=== PATIENT | female | born 1995 | race Caucasian/White ===

== ENCOUNTER 2017-04-29 13:44 | Emergency (ER) | payer BC ==
[~2017-04-29] VITALS: Ht 167.6 cm; Wt 69.2 kg
[2017-04-29 13:51] VITALS: TEMP 36.9; Ht 167.6 cm; Wt 69.2 kg
[2017-04-29] MEDS ORDERED: XYLOCAINE 1%/SOD BICARB 20 ML VIAL INFIL ONE (14:31)
--- NOTE | 2017-04-29 15:48 | EMERGENCY ROOM VISIT NOTE ---
History Report prepared by Reuben: Mago Browning Under the Supervision of: Dr. [place] M.D. First contact with patient: 14:04 Chief Complaint: OTHER COMPLAINT Stated Complaint: CYST ON VAGINAL OPENING History of Present Illness The patient is a 22 year old female who presents to the Emergency Room with complaints of a worsening vaginal cyst beginning three days ago. She states that she has been having problems with a Bartholin cyst for five months. The patient states that her first cyst required draining and packing. She notes that the packing fell out the following day. The patient states that last night she did not feel well and was experiencing chills. She states that she experiences pain "while wiping". The patient denies any pain during urination or bowel movements. Source of History: patient Onset: 3 days ago Position: other (vagina) Quality: other (cyst) Timing: worsening Associated Symptoms: + chills, No urinary symptoms (pain with urination) Review of Systems All systems have been listed, reviewed, and are negative other than those previously mentioned. Please see Additional Medical History Sheet. Past Medical & Surgical Medical Problems: (1) No Known Active Medical Problems Family History Diabetes mellitus Social History Smoking Status: Never Smoker Housing Status: lives alone Occupation Status: [employer] student Current/Historical Medications No Active Prescriptions or Reported Meds Allergies Coded Allergies: No Known Allergies (Unverified , 04/29/17) Physical Exam Vital Signs Date Time Temp Pulse Resp B/P (MAP) Pulse Ox O2 Delivery O2 Flow Rate FiO2 04/29/17 16:22 85 18 112/67 98 04/29/17 13:51 36.9 84 18 124/86 99 Room Air Physical Exam GENERAL: Patient awake, alert, oriented x 3. No significant distress. Patient follows commands. Patient does not appear toxic. Patient is adequately hydrated and well-nourished. SKIN: No erythema, pallor, cyanosis or rash HEENT: Normal head, pupils equal, reactive to light and accommodation. LUNGS: Clear to auscultation. No wheezes, no rales, no rhonchi. HEART: No murmurs. No gallops. No rubs ABDOMEN: No masses, no rebound, no hepatomegaly or splenomegaly. : Fist-sized left Bartholin cyst. Markedly tender to palpation. Induration noted. EXTREMITIES: No signs of trauma. No pedal or pretibial edema. No calf or thigh tenderness. NEUROLOGIC: Cranial nerves II-XII within normal limits. No gross motor sensory function deficits. Medical Decision & Procedures Procedure Incision & Drainage Indication: Abscess. Location: left labia minora Verbal consent was obtained The skin was prepped with dilute betadine and a sterile field set. The wound was anesthetized with 3 ml of 1% lidocaine without epinephrine. The abscess cavity was entered with a number 11 blade and purulent , foul smelling pus was expressed. Copious irrigation was performed using normal saline. The area was opened further with a pair of needle drivers. A word catheter was inserted and inflated with 7 ml of air. The wound was explored for foreign bodies and none found. No complications and the patient tolerated the procedure well. ED Course 1404: Past medical records reviewed. The patient was evaluated in room B8. A complete history and physical examination was performed. 1431: Lidocaine HCI 20 ml INFIL. 1440: I conducted the incision and drainage. See the procedure note for details. 1550:Upon reevaluation, the patient appeared to have improvement of her symptoms. I discussed today's findings with her. She verbalized agreement of the treatment plan. The patient was discharged home. Medical Decision Nurses notes reviewed. Medical history sheet reviewed. Differential diagnosis includes but is not limited to: Bartholin's cyst, cellulitis. The patient arrived with a large left Bartholin's cyst which was anesthetized and I & Ded. A large amount of pus was released. It was further bluntly opened and irrigated with normal saline. The patient tolerated the procedure well. Culture was obtained. The patient is currently on Keflex which she will continue. The patient has been taking Aleve for pain management. The patient will need to have the Word catheter removed in approximately 3-4 days. She will continue sitz baths at home. Impression Primary Impression: Bartholin's cyst Scribe Attestation The scribe's documentation has been prepared under my direction and personally reviewed by me in its entirety. I confirm that the note above accurately reflects all work, treatment, procedures, and medical decision making performed by me. Departure Information Dispostion Home / Self-Care Prescriptions No Active Prescriptions or Reported Meds Referrals No Doctor, Assigned (PCP) Patient Instructions [facility] Additional Instructions Continue Keflex 4 times a day. One Aleve every 8 hours as needed for pain. Use a sitz bath 3-4 times a day for the next 3 days. Follow-up with a chemical reclamation equipment operator within the next 3-4 days. If you are unable to get into see a chemical reclamation equipment operator return to the ED.
[2017-04-29 16:22] VITALS: BP 112/67; PULSE 85; O2SAT 98
== END 2017-04-29 16:24 | disposition home or self-care (01) ==
LOC: C.EDB 13:45
DX: N75.0 Cyst of Bartholin's gland (principal); Z83.3 Family history of diabetes mellitus

== ENCOUNTER 2017-11-10 22:23 | Emergency (ER) | payer BC ==
[~2017-11-10] VITALS: Ht 167.6 cm; Wt 70.7 kg
[~2017-11-10 22:23] MED LIST: HYDR-5688 PO
[2017-11-10 22:34] VITALS: BP 136/93; PULSE 61; TEMP 37; O2SAT 96; Ht 167.6 cm; Wt 70.7 kg
--- NOTE | 2017-11-10 23:32 | EMERGENCY ROOM VISIT NOTE ---
History First contact with patient: 23:16 Chief Complaint: SORETHROAT Stated Complaint: SORE THROAT,COUGH History of Present Illness The patient is a 22 year old female who presents to the Emergency Room with complaints of a sore throat. The patient states that she developed a sore throat yesterday. She reports she additionally had a fever, headache and body aches but these symptoms have resolved. She has had a sore throat since then. She rates the discomfort a 4/10 and states it is worse with swallowing. She is taking qdoe-afn-zegacwe cold medicine for her symptoms. She does report that a coworker recently called off with strep throat. She denies difficulty swallowing, neck pain, cough or shortness of breath. Review of Systems A complete 10 point review of systems was reviewed with the patient with pertinent positives and negatives as per history of present illness. All else were negative. Past Medical/Surgical History Medical Problems: (1) No Known Active Medical Problems Family History Diabetes mellitus Social History Smoking Status: Never Smoker Housing Status: lives alone Occupation Status: [employer] student Current/Historical Medications Scheduled PRN Hydrocodone/Acetaminophen 5MG/325MG ([place] 5MG/325MG), 1 TABLET PO Q6H PRN for Pain Physical Exam Vital Signs Date Time Temp Pulse Resp B/P (MAP) Pulse Ox O2 Delivery O2 Flow Rate FiO2 11/10/17 22:34 37.0 61 18 136/93 96 Room Air 11/10/17 22:32 99 Room Air Physical Exam VITALS: Vitals are noted on the nurse's note and reviewed by myself. Vital signs stable. GENERAL: This is a 22-year-old female, in no acute distress, nondiaphoretic, well-developed well-nourished. SKIN: The skin was without rashes. EARS: External auditory canals clear, tympanic membranes pearly garcia without erythema or effusion bilaterally. EYES: Pupils equal round and reactive to light and accommodation. MOUTH: Mucous membranes moist. Tonsils are not enlarged. Pharynx without erythema or exudate. NECK: Supple without nuchal rigidity. No lymphadenopathy. HEART: Regular rate and rhythm without murmurs gallops or rubs. LUNGS: Clear to auscultation bilaterally without wheezes, rales or rhonchi. NEURO: Patient was alert and oriented to person place and time. Medical Decision & Procedures Medical Decision Differential diagnosis includes strep pharyngitis, mononucleosis, viral pharyngitis, influenza, among others. The patient was evaluated as above. Rapid strep was negative. Culture is pending. History and findings are suggestive of viral process. Conservative measures were discussed with the patient. She verbalized understanding of my assessment and treatment plan and was discharged home in good condition. Medication Reconcilliation Current Medication List: was personally reviewed by me Blood Pressure Screening Patient's blood pressure: Normal blood pressure Impression Primary Impression: Acute pharyngitis Departure Information Dispostion Home / Self-Care Condition GOOD Referrals No Doctor, Assigned (PCP) Patient Instructions [facility] Additional Instructions You were seen in the emergency department for your sore throat. The results of your rapid strep screen were found to be negative. You will be contacted in 48- 72 hrs if your culture becomes positive. For pain and fever control, you can use the following ymbz-yzl-ingovcf medicines (if >12 yo): - Regular strength (325mg/tab) Tylenol (acetaminophen) 2 tabs every 4-6 hours as needed. Do not exceed 12 tablets in a 24 hour period. Avoid taking more than 4 grams (4000 mg) of Tylenol per day. This includes any other sources of acetaminophen you may take on a regular basis. - Regular strength (200 mg/tab) Advil (ibuprofen) 1-2 tabs every 4-6 hours as needed. Do not exceed a dose of 3200 mg per day. - For best results, alternate dosing of Tylenol and Advil. In addition to your prescribed medications, you can also use the following home remedies: - Warm salt-water gargles 3 times per day can soothe your throat and help to fight infection. - Warm tea with honey can soothe your throat. You may also use any dhwg-uxv-wjvoxzq treatments such as drops or sprays to help soothe the throat. Return to the emergency department if your symptoms persist or worsen over the next 2-3 days despite treatment course outlined above. Return to the emergency department if you develop the following symptoms of: inability to swallow solids , liquids, or drool; excessive wheezing or inability to catch your breath; or intractable fever or pain. Follow up with your primary care provider in 2-3 days from today's emergency department visit. Problem Qualifiers Primary Impression: Acute pharyngitis Pharyngitis/tonsillitis etiology: unspecified etiology Qualified Codes: J02.9 - Acute pharyngitis, unspecified
== END 2017-11-10 23:58 | disposition home or self-care (01) ==
LOC: C.EDB 22:25 → C.EDC 23:58
DX: J02.9 Acute pharyngitis, unspecified (principal); Z83.3 Family history of diabetes mellitus